=== PATIENT | male | born 1955 ===

== ENCOUNTER → 2018-06-02 | Outpatient (CLI) | payer BC ==
[~2018-06-02] MED LIST: ASPI-1471 PO; AZEL137S NS; FEXO180T87 PO; GLUC100026 PO; OMEG-11 PO; PSYL1000 ASDIRECTED; TEST75GE5 TP; UBID1CAP4 PO
== END ==
LOC: LAB 09:16
PROVIDERS: ATTEND Otolaryngology
DX: J30.9 Allergic rhinitis, unspecified (principal)
CPT/HCPCS: 36415; 86003